=== PATIENT | female | born 1970 | race Caucasian/White ===

== ENCOUNTER 2017-12-26 18:53 | Emergency (ER) | payer OTHER ==
[~2017-12-26] VITALS: Ht 149.9 cm; Wt 68.0 kg
[2017-12-26] MEDS ORDERED: SINGULAIR10 MG (19:58)
[2017-12-26] MEDS ORDERED: PROVENTIL HFA6.7 GM (19:58)
[2017-12-26] MEDS ORDERED: ADVAIR HFA 115/12 GM (19:58)
== END 2017-12-26 21:54 | disposition home or self-care (01) ==
LOC: ER 18:53
DX: S20.212A Contusion of left front wall of thorax, initial encounter (principal); W18.39XA Other fall on same level, initial encounter; Y93.89 Activity, other specified; Y92.098 Other place in other non-institutional residence as the place of occurrence of the external cause; Y99.8 Other external cause status